=== PATIENT | female | born 1990 | race Caucasian/White ===

== ENCOUNTER 2016-08-19 22:13 | Emergency (ER) | payer OTHER ==
--- NOTE | ~2016-08-19 | ER ---
[facility]GE[facility] 26 Y [address] ROOM: [place] [address] LOCATION: ED ADMIT DATE: 08/19/2016 ER/Outpatient Report DISCHARGE DATE: 08/19/2016 FAMILY PHYSICIAN: Basim Quiroz MD ATTENDING PHYSICIAN: Kerri Carter TIME SEEN: 2235 hours. CHIEF COMPLAINT: Headache. HISTORY OF PRESENT ILLNESS: The patient is 26-year-old female from [place], said since she has had a headache. The patient said basically starts kind in the back of her head and comes over the top of her head. She has noticed some mild photophobia. However, denies any fever or chills. The patient was seen in the [place] ER earlier today, had an Accu-Chek and a CT, which was normal. The patient was advised to continue the ibuprofen and follow up as needed. The patient was able to work for a few hours today. ALLERGIES: AMOXICILLIN AND PENICILLIN. CURRENT MEDICATIONS: Include: 1. Ibuprofen which she had been taken p.r.n. 800 mg. 2. Does have a ProAir. PAST MEDICAL HISTORY: Asthma. No previous history of migraines. FAMILY HISTORY: Negative for migraines or brain tumors. PAST SURGICAL HISTORY: None. SOCIAL HISTORY: Smoker quarter pack a day. Alcohol, occasionally. She is a single mom. REVIEW OF SYSTEMS: GENERAL: No recent illness. HEAD AND EENT: Includes a headache started on , not responded well to ibuprofen. Eyes, ears, nose, and throat: Some mild photophobia. She has had PAT[facility]'S NAME: [facility] AGE: 26 Y [address] ROOM: [place], [place] [address] LOCATION: ED ADMIT DATE: 08/19/2016 ER/Outpatient Report DISCHARGE DATE: 08/19/2016 FAMILY PHYSICIAN: Basim Quiroz MD ATTENDING PHYSICIAN: Kerri Carter a sore on the roof of her mouth. Denied any stiff neck or swollen glands. RESPIRATORY: No shortness of breath or cough. SKIN: No recent rash. PHYSICAL EXAMINATION: VITAL SIGNS: Her blood pressure is 128/70, her temperature is 98.6, respiratory rate 16, pulse 74, and O2 saturations 96%. GENERAL APPEARANCE: Did not appear to be in any severe distress. HEENT: Eyes pupils equal and react to light. Ears: Both TMs intact. Right TM is just slightly pink. Mouth: Teeth good repair. There was a very superficial sore on the roof of her mouth. Did not appear red or swollen. NECK: Supple. No cervical adenopathy. LUNGS: Clear. NEURO: She is oriented x3. Her Romberg was negative. LABORATORY DATA AND X-RAYS: CMS basically normal. TSH was 0.854. CBC: White count was 9.6, hemoglobin 14.4, and ANC 5.5. ASSESSMENT: Headache with a normal CT scan of the brain. PLAN: I advised to continue ibuprofen 800 mg 3 times a day, which the patient agreed to. Recommend rest tomorrow, staying out of the heat and the sun. Follow up Friday with Shimon Quiroz, her family doctor if symptoms are not improving. SAMIR AMADO FOR MD RICCI DUNNE/[place] /[id number] d: 08/20/16 0007 t: 08/25/16 1009, OUTPATIENT REPORT
[2016-08-19 23:00] LABS: BASOPHIL # 0.1 K/uL (0.0-0.2); BASOPHIL % 0.5 %; EOSINOPHIL # 0.5 K/uL (0.0-0.5); EOSINOPHIL % 5.2 %; HEMATOCRIT 43.4 % (33.0-46.0); HEMOGLOBIN 14.4 g/dL (11.0-15.0); IMMATURE GRANULOCYTE % 0.2 %; LYMPHOCYTE # 3.1 K/uL (0.8-4.0); LYMPHOCYTE % 31.9 %; MCH 29.7 pg (27.0-34.0); MCHC 33.2 gm/dL (32.0-36.5); MCV 89.5 fl (83.0-98.0); MONOCYTE # 0.5 K/uL (0.0-1.0); MONOCYTE % 4.8 %; MPV 10.4 fl (9.4-12.4); NEUTROPHIL # (ANC) 5.5 K/uL (1.8-7.8); NEUTROPHIL % 57.4 %; NRBC % 0 /100WBC (0-0.00); PLATELET COUNT 295 K/uL (150-450); RBC 4.85 M/uL (3.50-5.00); RDW-CV 14.2 % (11.9-14.6); WBC 9.6 K/uL (4.0-11.0)
[2016-08-19 23:19] LABS: ALBUMIN 3.7 gm/dL (3.5-5.0); ALK PHOS 102 IU/L (33-138); ALT 17 IU/L (12-78); ANION GAP 9.8 (10.0-19.0); AST 21 IU/L (10-40); BLOOD UREA NITROGEN 22 mg/dL (6-24); CALCIUM 8.6 mg/dL (8.5-10.5); CHLORIDE 108 mMol/L (96-110); CO2 26 mMol/L (22-32); ESTIMATED GFR (MDRD EQUATION) > 60; POTASSIUM 3.8 mMol/L (3.7-5.1); SODIUM 140 mMol/L (135-145); TOTAL BILIRUBIN 0.2 mg/dL (0.0-1.5); TOTAL PROTEIN 7.8 g/dL (6.0-8.4)
== END 2016-08-19 23:36 | disposition disaster alternative care site (69) ==
LOC: GMED 22:13
PROVIDERS: Physician Assistant Medical
DX: R51 Headache (principal); J45.909 Unspecified asthma, uncomplicated; F17.210 Nicotine dependence, cigarettes, uncomplicated; Z88.0 Allergy status to penicillin; Z88.1 Allergy status to other antibiotic agents

== ENCOUNTER 2016-09-10 14:29 | Emergency (ER) | payer OTHER ==
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
== END 2016-09-10 15:19 | disposition disaster alternative care site (69) ==
LOC: GMED 14:29 → GACC 14:29
DX: S11.91XA Laceration without foreign body of unspecified part of neck, initial encounter (principal); S40.812A Abrasion of left upper arm, initial encounter; S40.811A Abrasion of right upper arm, initial encounter; S20.319A Abrasion of unspecified front wall of thorax, initial encounter; F17.210 Nicotine dependence, cigarettes, uncomplicated; J45.909 Unspecified asthma, uncomplicated; Z88.0 Allergy status to penicillin; Z88.1 Allergy status to other antibiotic agents; Z79.899 Other long term (current) drug therapy; Y04.8XXA Assault by other bodily force, initial encounter